=== PATIENT | female | born 1960 | race Caucasian/White ===

== ENCOUNTER → 2018-03-06 | Day surgery (SDC) | payer OTHER ==
[~2018-03-06] MED LIST: BENAZEPRIL HCL40 MG PO; BUPROPION XL300 MG PO; DAILY VITAMIN1 EAC3 PO; FARXIGA PO; FISH OIL 1,0001 EAC2 PO; GLUCOSAMINE PO; HUMULIN R100 UNIT/2 SQ; IRON PO; KETAMINE HCL INJ 50 MG/ML 10 ML VIAL ONE; LANTUS100 UNITS/ SQ; LIDOCAINE HCL 2% LOCAL INJ 5 ML SDV VIAL INJ ONE; METFORMIN HCL500 MG PO; MIDAZOLAM HCL 2 MG/2 ML VIAL ONE; NOVOLOG100 UNITS1 SQ; OMEPRAZOLE40 MG PO; POTASSIUM GLUCONATE PO; PRAVASTATIN SOD20 MG PO; PROPOFOL IV EMULSION 10 MG/ML 50 ML VIAL ONE; TRESIBA SQ; TRIAMTERENE-HCTZ1 EA PO; TRULICITY SQ; VENLAFAXINE HCL75 MG PO; VERAPAMIL ER120 MG PO
[2018-03-06 12:43] LABS: C DIFFICILE TOXIN A&B AMP PROB NEGATIVE (NEGATIVE); WBC,FECAL (FECAL LACTOFERRIN) NEGATIVE (NEGATIVE)
--- NOTE | 2018-03-06 14:09 | Operative Report ---
DATE OF PROCEDURE: March 06, 2018 PROCEDURE PERFORMED: Esophagogastroduodenoscopy with biopsies and a colonoscopy with biopsies. REFERRING PHYSICIAN: Dr. Prince Ibrahim INDICATIONS FOR EGD: Dyspepsia. INDICATIONS FOR COLONOSCOPY: Colorectal cancer screening, personal history of colon polyps, intermittent bouts of diarrhea. MEDICATION: Patient was done under MAC. Please see anesthesiologist note. PROCEDURE IN DETAIL: With the patient in left lateral decubitus position, flexible fiberoptic Olympus gastroscope was introduced into the esophagus under direct visualization without any difficulty. There was some patchy erythema noted in distal esophagus. The scope was then advanced with ease into the stomach traversing a small sliding hiatal hernia. Mucosa overlying the antrum and the body revealed some patchy intense erythema and mild to moderate edema, and biopsies were obtained and sent to stain for H. pylori. The pylorus was of normal contour and shape. It was intubated with ease and the scope was advanced all the way to the second portion of the duodenum. Biopsies were obtained to rule out sprue. The mucosa overlying the duodenal bulb appeared to be within normal limits. The scope was then withdrawn back into the stomach and retroflexed, and the mucosa overlying the fundus and the cardia appeared to be within normal limits. The scope was then straightened out. The stomach was decompressed. The scope was subsequently withdrawn. Patient tolerated the procedure well. IMPRESSION: 1. Mild distal esophagitis. 2. Small sliding hiatal hernia. 3. Gastritis, biopsied. Biopsy sent to stain for Helicobacter pylori. 4. Rule out sprue. PLAN: Follow up histology. Increase omeprazole to 40 mg 1 p.o. a.c. b.i.d. Patient was then turned around. After adequate lubrication of the anal canal, a flexible fiberoptic Olympus colonoscope was inserted into the rectum with ease and advanced all the way to the cecum. The scope was then withdrawn slowly. Mucosa overlying the cecum, ascending colon, transverse, and descending appeared to be within normal limits. There was some patchy erythema and low-grade edema noted in the sigmoid and rectum, and biopsies were obtained. The scope was then retroflexed into the distal rectum, and small hypertrophic anal papillae were noted. The scope was then straightened out. It was subsequently withdrawn. Patient tolerated the procedure well. IMPRESSION: 1. Proctosigmoiditis, mild, patchy, biopsies obtained. 2. Hypertrophied anal papillae. PLAN: Follow up histology. Initiate VSL#3 1 p.o. every day. Patient might benefit from a followup colonoscopy in 3 to 5 years. Job#: [id number] cc:PRINCE IBRAHIM MD
== END | disposition home or self-care (01) ==
LOC: OR 05:47
PROVIDERS: ATTEND Internal Medicine Gastroenterology
DX: Z12.11 Encounter for screening for malignant neoplasm of colon (principal); K30 Functional dyspepsia; K20.9 Esophagitis, unspecified; K44.9 Diaphragmatic hernia without obstruction or gangrene; K63.89 Other specified diseases of intestine; K29.70 Gastritis, unspecified, without bleeding; Z88.0 Allergy status to penicillin; I10 Essential (primary) hypertension; E11.9 Type 2 diabetes mellitus without complications; E78.5 Hyperlipidemia, unspecified
CPT/HCPCS: 36415; 43239; 45380; 82948; 83630; 83993; 87045; 87177; 87328; 87493; 93005; J2001; J2250

== ENCOUNTER → 2020-08-17 | Day surgery (SDC) | payer OTHER ==
[2020-08-12 10:49] LABS: BASOPHILS % 0.4 % (0.0-1.0); EOSINOPHILS # (AUTO) 0.1 (0.0-0.4); EOSINOPHILS % 0.9 % (0.0-6.0); HEMATOCRIT 38.2 % (34.2-44.1); LYMPHOCYTES # (AUTO) 2.7 (1.0-3.2); LYMPHOCYTES % 25.6 % (18.0-39.1); MEAN CORPUSCULAR HEMOGLOBIN 26.6 pg (28-32); MEAN CORPUSCULAR HGB CONC 31.4 g/dL (31-35); MEAN CORPUSCULAR VOLUME 84.7 fL (81-99); MONOCYTES # (AUTO) 0.6 (0.2-0.8); MONOCYTES % 5.8 % (4.4-11.3); NEUTROPHILS # (AUTO) 6.9 (2.1-6.9); PLATELET COUNT 264 x10e3/uL (140-360); RED BLOOD COUNT 4.51 x10e6/uL (3.6-5.1); RED CELL DISTRIBUTION WIDTH 15.4 % (11.7-14.4)
[2020-08-12 10:59] LABS: INR 0.89; PROTHROMBIN TIME 12.5 seconds (11.9-14.5)
[2020-08-12 11:09] LABS: ALANINE AMINOTRANSFERASE 38 IU/L (0-55); ALBUMIN 3.8 g/dL (3.5-5.0); ALKALINE PHOSPHATASE 54 IU/L (40-150); ANION GAP 15.8 mmol/L (8-16); BLOOD UREA NITROGEN 23 mg/dL (7-26); BUN/CREATININE RATIO 29 (6-25); CALCIUM 9.2 mg/dL (8.4-10.2); CARBON DIOXIDE 25 mmol/L (22-29); CHLORIDE 102 mmol/L (98-107); EST GLOMERULAR FILTRATION RATE > 60 ML/MIN (60-); GLUCOSE 72 mg/dL (74-118); POTASSIUM 3.8 mmol/L (3.5-5.1); SODIUM 139 mmol/L (136-145)
[~2020-08-17] VITALS: Ht 149.9 cm; Wt 109.3 kg
[2020-08-17] VITALS (8 sets, daily range): BP systolic 120–166; BP diastolic 71–87
[~2020-08-17] MED LIST changes: +BUPROPION HCL100 MG PO; +FARXIGA10 MG PO; +FENTANYL CITRATE/PF 100MCG/2 ML INJ ONE; +FUROSEMIDE40 MG PO; +HEPARIN SOD (PORCINE) 1000 UNIT/ML 30ML ONE; +HEPARIN SOD/SOD CHLORIDE 2,000 ML ONE; +IOPAMIDOL 370 MG/ML 200 ML INFUS..BTL INJ ONE; -KETAMINE HCL INJ 50 MG/ML 10 ML VIAL ONE; +LIDOCAINE HCL 2% LOCAL 20 ML VIAL ONE; -LIDOCAINE HCL 2% LOCAL INJ 5 ML SDV VIAL INJ ONE; +METOPROLOL SUCC50 MG PO; +NITROGLYCERIN/D5W 200 MCG/ML 250 ML ONE; +PANTOPRAZOLE SO40 MG PO; +POTASSIUM GLUCO90 MG PO; -PROPOFOL IV EMULSION 10 MG/ML 50 ML VIAL ONE; +SODIUM CHLORIDE 0.9% 1000ML 1,000 ML ONE; +TRESIBA100 UNIT/1 SC; +TRULICITY1.5 MG/0.5 SC; +VERAPAMIL HCL 2.5 MG/ML 2 ML VIAL ONE; +VITAMIN B-121000 MCG PO; +VITAMIN C500 M3 PO; +VITAMIN D3 PO
== END | disposition home or self-care (01) ==
LOC: CATH LAB 07:02
PROVIDERS: ATTEND Internal Medicine Cardiovascular Disease
DX: I42.8 Other cardiomyopathies (principal); I10 Essential (primary) hypertension; I11.0 Hypertensive heart disease with heart failure; I50.21 Acute systolic (congestive) heart failure; R94.31 Abnormal electrocardiogram [ECG] [EKG]; E11.9 Type 2 diabetes mellitus without complications; Z88.0 Allergy status to penicillin; Z01.812 Encounter for preprocedural laboratory examination; Z20.828 Contact with and (suspected) exposure to other viral communicable diseases; Z79.4 Long term (current) use of insulin; Z68.42 Body mass index [BMI] 45.0-49.9, adult; Z82.49 Family history of ischemic heart disease and other diseases of the circulatory system; Z83.3 Family history of diabetes mellitus
CPT/HCPCS: 36415; 80053; 85025; 85610; 93458; C1769; C1887; J1644; J2001; J2250; J3010; J7030; Q9967; U0002; 99152

== ENCOUNTER → 2020-12-08 | Day surgery (SDC) | payer OTHER ==
[2020-12-03 08:41] LABS: BASOPHILS # (AUTO) 0.1 (0.0-0.1); BASOPHILS % 0.6 % (0.0-1.0); EOSINOPHILS # (AUTO) 0.2 (0.0-0.4); EOSINOPHILS % 2.2 % (0.0-6.0); HEMATOCRIT 41.2 % (34.2-44.1); HEMOGLOBIN 13.5 g/dL (12.0-16.0); LYMPHOCYTES # (AUTO) 3.2 (1.0-3.2); LYMPHOCYTES % 35.8 % (18.0-39.1); MEAN CORPUSCULAR HEMOGLOBIN 26.4 pg (28-32); MEAN CORPUSCULAR HGB CONC 32.8 g/dL (31-35); MEAN CORPUSCULAR VOLUME 80.5 fL (81-99); MONOCYTES # (AUTO) 0.6 (0.2-0.8); MONOCYTES % 6.4 % (4.4-11.3); NEUTROPHILS # (AUTO) 4.9 (2.1-6.9); NEUTROPHILS % 54.6 % (38.7-80.0); PLATELET COUNT 230 x10e3/uL (140-360); RED BLOOD COUNT 5.12 x10e6/uL (3.6-5.1); RED CELL DISTRIBUTION WIDTH 16.8 % (11.7-14.4)
[2020-12-03 08:51] LABS: INR 0.81; PROTHROMBIN TIME 11.7 seconds (11.9-14.5)
[2020-12-03 08:58] LABS: BLOOD UREA NITROGEN 14 mg/dL (7-26); BUN/CREATININE RATIO 19 (6-25); CALCIUM 8.7 mg/dL (8.4-10.2); CARBON DIOXIDE 27 mmol/L (22-29); CHLORIDE 105 mmol/L (98-107); CREATININE, SERUM 0.74 mg/dL (0.57-1.11); EST GLOMERULAR FILTRATION RATE > 60 ML/MIN (60-); GLUCOSE 88 mg/dL (74-118); SODIUM 145 mmol/L (136-145)
[~2020-12-08] VITALS: Ht 149.9 cm; Wt 109.3 kg
[~2020-12-08] MED LIST changes: +ENTRESTO 49 MG1 EACH; -HEPARIN SOD (PORCINE) 1000 UNIT/ML 30ML ONE; -HEPARIN SOD/SOD CHLORIDE 2,000 ML ONE; -IOPAMIDOL 370 MG/ML 200 ML INFUS..BTL INJ ONE; -NITROGLYCERIN/D5W 200 MCG/ML 250 ML ONE; -SODIUM CHLORIDE 0.9% 1000ML 1,000 ML ONE; +SODIUM CHLORIDE 0.9% 1000ML 2,000 ML ONE; +SODIUM CHLORIDE 0.9% 500ML 500 ML ONE; +VANCOMYCIN 1GM/NS 250 ML 500 ML ONE; -VERAPAMIL HCL 2.5 MG/ML 2 ML VIAL ONE
[2020-12-08 08:25] VITALS: BP 122/78
[2020-12-08 08:40] VITALS: BP 118/67
[2020-12-08 08:55] VITALS: BP 108/65
[2020-12-08 09:10] VITALS: BP 110/62
[2020-12-08 09:25] VITALS: BP 109/60
[2020-12-08 09:55] VITALS: BP 114/68
== END | disposition home or self-care (01) ==
LOC: CATH LAB 06:06
PROVIDERS: ATTEND Internal Medicine
DX: I11.0 Hypertensive heart disease with heart failure (principal); I50.42 Chronic combined systolic (congestive) and diastolic (congestive) heart failure; I42.8 Other cardiomyopathies; Z01.812 Encounter for preprocedural laboratory examination; Z20.822 Contact with and (suspected) exposure to COVID-19; Z79.4 Long term (current) use of insulin
CPT/HCPCS: 33270; 36415 ×2; 71045; 80048; 82948; 85025; 85610; C1722; C1777; J2001; J2250; J3010; J3370; J7030; J7040; U0002; 33249; 99152; 99153

== ENCOUNTER 2020-12-21 21:50 | Emergency (ER) | payer OTHER ==
[~2020-12-21] VITALS: Ht 149.9 cm; Wt 108.9 kg
[~2020-12-21 21:50] MED LIST changes: -FENTANYL CITRATE/PF 100MCG/2 ML INJ ONE; -LIDOCAINE HCL 2% LOCAL 20 ML VIAL ONE; -MIDAZOLAM HCL 2 MG/2 ML VIAL ONE; -SODIUM CHLORIDE 0.9% 1000ML 2,000 ML ONE; -SODIUM CHLORIDE 0.9% 500ML 500 ML ONE; -VANCOMYCIN 1GM/NS 250 ML 500 ML ONE
[2020-12-21] MEDS ORDERED: DEXTROSE 50% SYRINGE 50 ML IV ONE (22:05)
[2020-12-21] MEDS ORDERED: DEXTROSE 50% SYRINGE 50 ML IV STA (22:14)
[2020-12-21] MEDS ORDERED: ONDANSETRON HCL INJ 2MG/ML 2ML 2 MG/ML VIAL IV STA (22:29)
[2020-12-21] MEDS ORDERED: DEXTROSE 5%/0.45% SOD CHL 1,000 ML IV ONE (22:30)
[2020-12-21 22:42] LABS: BASOPHILS # (AUTO) 0.1 (0.0-0.1); BASOPHILS % 0.4 % (0.0-1.0); EOSINOPHILS # (AUTO) 0.1 (0.0-0.4); EOSINOPHILS % 0.7 % (0.0-6.0); HEMATOCRIT 40.3 % (34.2-44.1); HEMOGLOBIN 12.8 g/dL (12.0-16.0); LYMPHOCYTES # (AUTO) 1.7 (1.0-3.2); LYMPHOCYTES % 11.3 % (18.0-39.1); MEAN CORPUSCULAR HEMOGLOBIN 26.5 pg (28-32); MEAN CORPUSCULAR HGB CONC 31.8 g/dL (31-35); MEAN CORPUSCULAR VOLUME 83.4 fL (81-99); MONOCYTES # (AUTO) 0.9 (0.2-0.8); MONOCYTES % 6.2 % (4.4-11.3); NEUTROPHILS # (AUTO) 12.1 (2.1-6.9); NEUTROPHILS % 80.8 % (38.7-80.0); PLATELET COUNT 232 x10e3/uL (140-360); RED BLOOD COUNT 4.83 x10e6/uL (3.6-5.1); RED CELL DISTRIBUTION WIDTH 16.7 % (11.7-14.4)
[2020-12-21 23:03] LABS: ALANINE AMINOTRANSFERASE 27 IU/L (0-55); ALBUMIN 3.7 g/dL (3.5-5.0); ALBUMIN/GLOBULIN RATIO 0.9 (0.8-2.0); ALKALINE PHOSPHATASE 55 IU/L (40-150); ANION GAP 20.5 mmol/L (8-16); BLOOD UREA NITROGEN 11 mg/dL (7-26); BUN/CREATININE RATIO 14 (6-25); CALCIUM 9.3 mg/dL (8.4-10.2); CARBON DIOXIDE 28 mmol/L (22-29); CHLORIDE 101 mmol/L (98-107); CREATININE, SERUM 0.77 mg/dL (0.57-1.11); EST GLOMERULAR FILTRATION RATE > 60 ML/MIN (60-); GLUCOSE 114 mg/dL (74-118); SODIUM 147 mmol/L (136-145)
[2020-12-21 23:04] LABS: POTASSIUM 2.5 mmol/L (3.5-5.1)
[2020-12-21] MEDS ORDERED: POTASSIUM CHLORIDE 20 MEQ TAB CR PO STA (23:05)
[2020-12-21] MEDS ORDERED: POTASSIUM CHLORIDE 20MEQ/100ML 100 ML IV STA (23:05)
[2020-12-22 03:23] LABS: CLARITY,URINE SL CLOUDY (CLEAR); COLOR,URINE YELLOW (YELLOW); KETONES,URINE 1+ (NEGATIVE); LEUKOCYTE ESTERASE ,URINE NEGATIVE (NEGATIVE); NITRITE,URINE NEGATIVE (NEGATIVE); PROTEIN,URINE DIPSTICK 1+ (NEGATIVE); URINE UROBILINOGEN 1 mg/dL (0.2 - 1)
[2020-12-22 03:33] LABS: BACTERIA,URINE MANY /HPF; EPITHELIAL CELLS,URINE MODERATE /LPF; RBC,URINE 0-5 /HPF (0-5); WBC,URINE (MAN) 0-5 /HPF (0-5)
[2020-12-22 04:08] VITALS: BP 134/75
== END 2020-12-22 04:50 | disposition home or self-care (01) ==
LOC: ER 22:04
DX: E11.649 Type 2 diabetes mellitus with hypoglycemia without coma (principal); R11.0 Nausea; V43.52XA Car driver injured in collision with other type car in traffic accident, initial encounter; Y92.488 Other paved roadways as the place of occurrence of the external cause; I10 Essential (primary) hypertension; I50.9 Heart failure, unspecified; F32.9 Major depressive disorder, single episode, unspecified; Z95.810 Presence of automatic (implantable) cardiac defibrillator; F17.210 Nicotine dependence, cigarettes, uncomplicated
CPT/HCPCS: 36415; 70450; 71045; 72125; 72170; 80053; 81001; 82948; 85025; 93005; 99285; J2405; J3480; J7799

== ENCOUNTER → 2025-01-26 | Day surgery (SDC) | payer OTHER ==
[2025-01-20 08:30] LABS: BASOPHILS # (AUTO) 0.1 (0.0-0.1); BASOPHILS % 0.7 % (0.0-1.0); EOSINOPHILS # (AUTO) 0.2 (0.0-0.4); EOSINOPHILS % 2.8 % (0.0-6.0); HEMATOCRIT 41.2 % (34.2-44.1); HEMOGLOBIN 13.8 g/dL (12.0-16.0); LYMPHOCYTES # (AUTO) 2.5 (1.0-3.2); LYMPHOCYTES % 32.5 % (18.0-39.1); MEAN CORPUSCULAR HEMOGLOBIN 26.8 pg (28-32); MEAN CORPUSCULAR HGB CONC 33.5 g/dL (31-35); MEAN CORPUSCULAR VOLUME 80.2 fL (81-99); MONOCYTES # (AUTO) 0.5 (0.2-0.8); NEUTROPHILS # (AUTO) 4.4 (2.1-6.9); NEUTROPHILS % 57.6 % (38.7-80.0); PLATELET COUNT 183 x10e3/uL (140-360); RED BLOOD COUNT 5.14 x10e6/uL (3.6-5.1); RED CELL DISTRIBUTION WIDTH 14.5 % (11.7-14.4); WHITE BLOOD COUNT 7.61 x10e3/uL (4.8-10.8)
[~2025-01-26] MED LIST changes: +GLYCOPYRROLATE INJ 0.2 MG/ML VIAL ONE; +HYOSCYAMINE SULFATE 0.5 MG/ML INJ ONE; +LACTATED RINGER'S 1,000 ML ONE; +LIDOCAINE HCL 2% LOCAL INJ 5 ML SDV VIAL INJ ONE; +MOUNJARO12.5 MG/0. SQ; +PRISTIQ ER50 MG PO; +PROPOFOL IV EMULSION 50 ML IV ONE
[2025-01-26 13:10] VITALS: TEMP 97.8
[2025-01-26 13:40] VITALS: BP 131/86; PULSE 85; RESP 15; O2SAT 100
[2025-01-29 07:13] LABS: ENDOMYSIAL ANTIBODIES, IGA Negative (Negative)
[2025-01-29 07:26] LABS: IMMUNOGLOBULIN A 337 mg/dL (87-352); TISSUE TRANSGLUTAMINASE IGA AB <2 U/mL (0-3)
== END | disposition home or self-care (01) ==
LOC: OR 09:31
PROVIDERS: ATTEND Internal Medicine Gastroenterology
DX: D64.89 Other specified anemias (principal); D12.2 Benign neoplasm of ascending colon; K29.50 Unspecified chronic gastritis without bleeding; K31.89 Other diseases of stomach and duodenum; K20.90 Esophagitis, unspecified without bleeding; K44.9 Diaphragmatic hernia without obstruction or gangrene; E11.9 Type 2 diabetes mellitus without complications; I11.0 Hypertensive heart disease with heart failure; I50.9 Heart failure, unspecified; Z71.89 Other specified counseling; E66.01 Morbid (severe) obesity due to excess calories; F32.A Depression, unspecified; Z88.0 Allergy status to penicillin; Z01.810 Encounter for preprocedural cardiovascular examination; Z01.812 Encounter for preprocedural laboratory examination; Z79.4 Long term (current) use of insulin; Z79.85 Long-term (current) use of injectable non-insulin antidiabetic drugs; Z79.899 Other long term (current) drug therapy; Z68.42 Body mass index [BMI] 45.0-49.9, adult; Z71.3 Dietary counseling and surveillance; Z95.810 Presence of automatic (implantable) cardiac defibrillator; Z80.0 Family history of malignant neoplasm of digestive organs
CPT/HCPCS: 36415 ×2; 43239; 45385; 82784; 82948; 83516; 85025; 86256; 93005; J1980; J2003; J2470; J2704; J7121; 45378